=== PATIENT | female | born 1950 | race Caucasian/White ===

== ENCOUNTER 2020-12-06 10:37 | Emergency (ER) | payer MEDICARE, OTHER ==
[~2020-12-06] VITALS: Ht 167.6 cm; Wt 101.6 kg
[~2020-12-06 10:37] MED LIST: ACULAR5 ML OP; ALPHA LIPOIC A300 MG PO; ASPIR 8181 MG PO; CITALOPRAM HBR40 MG PO; CRANBERRY300 MG PO; CYCLOBENZAPRINE5 MG PO; DICLOFENAC SOD2.5 ML OPTH; DILTIAZEM ER240 MG PO; FISH OIL 1,2001 EAC4 PO; FLUOXETINE HCL20 M1 PO; GABAPENTIN100 MG PO; HYDREA500 MG PO; HYDROCHLOROTHIA50 MG PO; HYDROCODON-ACE1 EA10 PO; KLOR-CON 1010 MEQ PO; LEVOXYL100 MCG PO; LOVASTATIN40 MG PO; OMEPRAZOLE20 MG PO; PREDNISOLON5 MG/5 M1 OU; RESTASIS MULTI5.5 ML OP; SPIRONOLACTONE25 MG PO
--- OUTSIDE RECORDS SUMMARY | 2020-12-06 10:40 | XMS ---
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 Xochitl has no Care Guidelines for this patient. Fidel VISIT COUNT (12 MO.) 1 KARINA Glynn TOTAL 1 NOTE: Visits indicate total known visits. ED/C VISIT TRACKING (12 MO.) 12/06/2020 10:37 [facility] [place] TYPE: Emergency COMPLAINT: - SHORTNESS OF BREATH, VOMITING INPATIENT VISIT TRACKING (12 MO.) No inpatient visits to display in this time frame [email or web address]
[2020-12-06] MEDS ORDERED: ALENDRONATE SOD70 MG PO (10:57)
--- NOTE | 2020-12-06 18:17 | EKG ---
[facility] [address] [facility] [place], [place] [address] Signed Sinus tachycardia Inferior infarct , age undetermined Possible Anterolateral infarct , age undetermined Abnormal ECG No previous ECGs available Confirmed by LALO CHATTERJEE MD ([id number]) on 12/06/2020 6:16:59 PM Electronically Signed By: LALO CHATTERJEE MD 12/06/20 1817 PATIENT NAME: VALENTINEKAYLI Electrocardiogram DATE OF : 52 PHYSICIAN: LALO CHATTERJEE MD REPORT #: [id number] REPORT IS CONFIDENTIAL AND NOT TO BE RELEASED WITHOUT AUTHORIZATION
== END 2020-12-06 17:33 | disposition short-term general hospital (02) ==
LOC: ED 10:37
DX: I26.99 Other pulmonary embolism without acute cor pulmonale (principal); R09.02 Hypoxemia; R00.0 Tachycardia, unspecified; R77.8 Other specified abnormalities of plasma proteins; R74.02 Elevation of levels of lactic acid dehydrogenase [LDH]; K21.9 Gastro-esophageal reflux disease without esophagitis; Z88.0 Allergy status to penicillin; Z88.8 Allergy status to other drugs, medicaments and biological substances; Z79.899 Other long term (current) drug therapy; Z79.82 Long term (current) use of aspirin
CPT/HCPCS: 51701; 71045; 71260; 80048; 80053; 81001; 83605; 83690; 83735; 83880; 84484; 85025; 85610; 85730; 93005; 93010; 99285-25; C9803; J1200; J1644; J2405; J2930; J3010; J7030; Q9967; U0003

== ENCOUNTER 2021-01-07 10:40 | Day surgery (SDC) | payer MEDICARE, OTHER ==
[~2021-01-07] VITALS: Ht 167.6 cm; Wt 97.2 kg
[~2021-01-07 10:40] MED LIST changes: +ALENDRONATE SOD70 MG PO; +CALCIUM 250+D1 EACH PO; +ELIQUIS5 MG PO; +METFORMIN HCL500 M2 PO; +VITAMIN D350 MC3 PO
--- NOTE | 2021-01-07 12:24 | NUR ---
01/07/21 1224 Yoko Monroe 1219 PT TO PACU ALERT AND AWAKE DENIES PAIN.
--- NOTE | 2021-01-09 13:14 | PATH ---
[facility] [address] [facility] [place], [place] [address] Signed SPECIMEN(S): C COMP FLOW CYTOMETRY, BM EDTA SPECIMEN(S): A BONE MARROW - CORE SPECIMEN(S): B BONE MARROW - ASPIRATION CLINICAL HISTORY: Bone marrow biopsy. 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 Rule out progression to AML. See attached. D47.3 (essential [hemorrhagic] thrombocythemia) DIAGNOSIS SUMMARY: A. Peripheral blood - Mild thrombocytosis. - Macrocytosis. B. Bone marrow aspirate smears, clot section, and core biopsy: - Slightly hypercellular bone marrow with increased megakaryopoiesis. - Negative for increase in blasts. - Mild increase in bone marrow reticulin fibrosis (grade I). - Increased storage iron. - Please see diagnostic comment. DIAGNOSTIC COMMENT: The patient's history of essential thrombocythemia is noted. The bone marrow examination demonstrates slightly hypercellular bone marrow, slightly increased number of megakaryocytes with occasional loose aggregates noted. No increase in blasts is noted. The bone marrow findings are compatible with clinical history of essential thrombocythemia with no features suggestive of progression of diseases. Correlation with clinical and cytogenetic findings is recommended. In comparison to previous bone marrow study ([id number]; 07/19/2018), the cellularity is decreased and the degree of megakaryopoies is also decreased in the current study. This case has been reviewed and dictated by Ryan Weathers M.D.[facility] CENT[facility]yrese, board certified hematopathologist. NA:vlg:C2NR PERIPHERAL BLOOD: HEMOGRAM ([facility], 01/07/2021): WBCs 7.7 K/uL, RBCs 2.97 K/uL, HGB 12.2 g/dL, HCT 35.5%, MCV 120.7 f/L, RDW 14.2 fL, MCHC 34 g/dL, PLT 408 K/uL. DIFFERENTIAL (automated): 83.5% neutrophils, 9.8% lymphocytes, 6.1% monocytes, PATIENT NAME: KAYLI VALENTINE PATHOLOGY DATE OF : 52 REPORT #: [id number] PHYSICIAN: VERONICA HARDIN PCP: NERISSA NERI MD REPORT IS CONFIDENTIAL AND NOT TO BE RELEASED WITHOUT AUTHORIZATION [facility] [address] [place], [place] [address] Signed 0.9% eosinophils, and 0.4% basophils. Review of peripheral blood smear and CBC data demonstrate macrocytosis and mild anisopoikilocytosis of RBCs. The WBCs are normal in number with relative neutrophilia noted. The granulocytes show unremarkable morphology. The platelets are slightly increased in number with unremarkable in morphology. BONE MARROW: BONE MARROW ASPIRATES SMEARS: The bone marrow aspirate smears are adequately cellular for evaluation. Trilineage hematopoiesis is present with progressive ordinary maturation. There is no increase in blasts noted. The emulation appears normal. There is no dyshematopoiesis identified. The megakaryocytes appear to be increased in number with occasional hyperlobated form seen. BONE MARROW DIFFERENTIAL (200 CELLS): 1% blasts, 3% promyelocytes, 12% myelocytes, 37% segmented neutrophils, 6% lymphocytes, 1% monocytes, 4% eosinophils, 3% plasma cells, 33% erythroid cells. BONE MARROW CORE BIOPSY AND CLOT SECTION: The bone marrow core biopsy demonstrates slightly hypercellular bone marrow for age with an averaging cellularity of 40%. Trilineage hematopoiesis is present with progressive maturation. There are no lymphoid aggregates, granulomas, or metastatic tumor cells present. The megakaryocytes are scattered and appear increased in number with occasional small aggregates noted. The clot section shows similar findings. SPECIAL STAINS: - Iron (aspirate smears): Increased storage iron, negative for ringed sideroblasts. - Iron (clot section, block B1): Storage iron present, negative for ringed sideroblasts. - Reticulin stain (block A1): Mild increase in bone marrow reticulin fibrosis. IMMUNOHISTOCHEMICAL STAINS: Block (A1): - CD34: Negative for increase in blasts. - CD117: Negative for increase in blasts - CD71: Highlights erythroid precursors with normal distribution pattern. - Factor 8: Highlights and confirm increase number of megakaryocytes with occasional clustering. - MPO: Highlights myeloid precursors with normal distribution pattern - CD138: Highlights scattered plasma cells (2%) Block (B1): PATIENT NAME: KAYLI VALENTINE PATHOLOGY DATE OF : 52 REPORT #: [id number] PHYSICIAN: VERONICA PATHOLOGY PCP: NERISSA NERI MD REPORT IS CONFIDENTIAL AND NOT TO BE RELEASED WITHOUT AUTHORIZATION [address] [address] Signed - CD34 (on Block B1): Negative for increase in blasts. All control slides stained appropriately. FLOW CYTOMETRY: Bone marrow aspirate, flow cytometry: No increase in myeloblasts (1.5%). Increase [id number] in granulocytes and monocytes. See comment. COMMENT: Flow cytometry analysis shows no increase in myeloblasts. Increase CD56 expression and monocytes is noted. This finding is not specific and could be seen in reactive condition and in myeloid stem cell disorders. Patient clinical history of essential thrombocythemia is noted. Correlation with clinical, morphologic, and genetic finding is recommended for further diagnosis and for a more accurate blast count. FLOW CYTOMETRY ANALYSIS: FLOW DIFFERENTIAL (% Total CD45 vs. SSC gating): Myeloid 79%; Lymphoid 9%; Monocyte 3%; Dim CD45/Blast: 1.5%. Cell Count: 7.7 x 10*3/uL. POPULATION ANALYSIS: BLASTS: Analysis of the dim CD45 gate demonstrates 1.5% myeloblasts by CD34/CD117. LYMPHOID CELLS: The lymphocyte gate comprises 9% of total events and includes 88% T-cells with a CD4:CD8 ratio of 1.4:1 and normal miller T-cell antigen expression. 5% of lymphocytes are polyclonal B-cells with a kappa:lambda ratio of 1.5:1. The remainders are NK-cells. MYELOID CELLS: The myeloid population comprises 79% of the total events. Increased CD56 expression is observed. MONOCYTES: The monocyte population comprises 3% of the total events. Increased CD56 expression is observed. PLASMA CELLS: 0.6% plasma cells are detected in the screening gate neg-dimCD45/CD38. Plasma cells are CD45 dim and positive for CD19. ANTIBODIES USED: KAPPA, LAMBDA, CD20, CD10, CD19, CD23, CD38, FMC7, CD16, CD56, CD8, CD5, CD2, CD4, CD7, CD3, CD14, CD33, CD13, HLADR, CD34, CD117, CD15, CD45: TOTAL ANTIBODIES USED: 24. DKW GROSS DESCRIPTION: Two specimens are received in two containers, labeled "BS." PATIENT NAME: KAYLI VALENTINE PATHOLOGY DATE OF : 52 REPORT #: [id number] PHYSICIAN: VERONICA HARDIN PCP: NERISSA NERI MD REPORT IS CONFIDENTIAL AND NOT TO BE RELEASED WITHOUT AUTHORIZATION [facility] [address] [place], [place] [address] Signed A. The specimen, labeled "BS, bone marrow core," is received in formalin and consists of one cylindrical bone core fragment with clot material measuring 0.3 cm in diameter and 1.7 cm in length. The specimen is entirely submitted in cassette (A1) following decalcification in Immunocal. B. The specimen, labeled "BS, bone marrow clot," is received in formalin and consists of clot material measuring 1.8 x 1.0 x 0.2 cm in aggregate. The specimen is filtered and entirely submitted in cassette (B1). Bone marrow inventory also includes: Two peripheral smears, one EDTA tube bone marrow, two heparin tubes. AT (under the direct supervision of a pathologist) The Gross Description was prepared using a voice recognition system. The report was reviewed for accuracy; however, sound-alike word errors, addition and/or deletions may occur. If there is any question about this report, please contact Client Services. Immunohistochemical and/or in situ hybridization studies were performed on this case with the appropriate positive controls that react as expected. This test was developed and its performance characteristics determined by [employer] [facility]. It has not been cleared or approved by the U.S. Food and Drug Administration. The FDA has determined that such clearance or approval is not necessary. This test is used for clinical purposes. It should not be regarded as investigational or for research. [facility] is certified under the Clinical Laboratory Improvement Amendments of 1988 (CLIA) as qualified to perform high complexity clinical laboratory testing. In this case, certain antibodies were performed by both immunohistochemistry and flow cytometry analysis because flow cytometry analysis did not fully explain all the light microscopic findings. Immunohistochemistry aided in the analysis. Both methods are deemed medically necessary in this case. ADDITIONAL NOTES: Immunohistochemical and/or in situ hybridization studies were performed on this case with the appropriate positive controls that react as expected. This test was developed and its performance characteristics determined by [facility] [facility]. It has not been cleared or approved by the U.S. Food and Drug Administration. The FDA has determined that such clearance or approval is not PATIENT NAME: KAYLI VALENTINE PATHOLOGY DATE OF : 52 REPORT #: [id number] PHYSICIAN: VERONICA HARDIN PCP: NERISSA NERI MD REPORT IS CONFIDENTIAL AND NOT TO BE RELEASED WITHOUT AUTHORIZATION [address] [address] Signed necessary. This test is used for clinical purposes. It should not be regarded as investigational or for research. [facility] is certified under the Clinical Laboratory Improvement Amendments of 1988 (CLIA) as qualified to perform high complexity clinical laboratory testing. PERFORMING LABORATORY: The technical component was performed by [facility], [address] [place], [place] [address], [place] [address] (Food Service: Darian Penn D.O.; CLIA#: [id number]. Professional interpretation was performed by [facility], [facility], [address] [place] [address] (CLIA#: [id number]). The technical component was performed by [facility], [address] [place], [place] [address] [address] (Food Service: Darian Penn D.O.; CLIA#: [id number]). Professional interpretation was performed by [facility], [facility], [address] [place] [address] (CLIA#: [id number]) IMAGES: A: [id number] A: [id number] FINAL DIAGNOSIS PERFORMED BY: Ryan Weathers MD, CHALO, Jan 08 2021 10:38AM Diagnostician: Ryan Weathers MD, FACP Pathologist Electronically Signed 01/09/2021 Copies: ~ PATIENT NAME: KAYLI VALENTINE PATHOLOGY DATE OF : 52 REPORT #: [id number] PHYSICIAN: VERONICA HARDIN PCP: NERISSA NERI MD REPORT IS CONFIDENTIAL AND NOT TO BE RELEASED WITHOUT AUTHORIZATION
== END 2021-01-07 13:00 | disposition home or self-care (01) ==
LOC: OPS 10:40 → DS 10:44 → OPS 12:00 → DS 12:00 → OPS 13:00
PROVIDERS: ATTEND Specialist
PROC: 07DR3ZX Extraction of Iliac Bone Marrow, Percutaneous Approach, Diagnostic (ICD-10-PCS; principal; 2021-01-07 12:00)
DX: D47.3 Essential (hemorrhagic) thrombocythemia (principal); D75.89 Other specified diseases of blood and blood-forming organs; I10 Essential (primary) hypertension; E78.00 Pure hypercholesterolemia, unspecified; M19.90 Unspecified osteoarthritis, unspecified site; A80.9 Acute poliomyelitis, unspecified; E03.9 Hypothyroidism, unspecified; E55.9 Vitamin D deficiency, unspecified; G62.9 Polyneuropathy, unspecified; Z88.0 Allergy status to penicillin; Z91.041 Radiographic dye allergy status
CPT/HCPCS: 36415; 85025; G0500; J2250; J3010; J7121

== ENCOUNTER 2021-10-05 23:59 | Emergency (ER) | payer OTHER, MEDICARE ==
[~2021-10-05] VITALS: Ht 167.6 cm; Wt 103.3 kg
--- OUTSIDE RECORDS SUMMARY | 2021-10-06 | XMS ---
PreManage Notification: KAYLI VALENTINE Security Educational Diagnostician Events No recent Security Events currently on file CRITERIA MET - [facility]MP CARE PROVIDERS [facility] 12/08/2020-Current PHONE: [phone] Xochitl has no Care Guidelines for this patient. EDiana VISIT COUNT (12 MO.) 2 KARINA Glynn TOTAL 2 NOTE: Visits indicate total known visits. ED/UCC VISIT TRACKING (12 MO.) 10/05/2021 23:[address] [facility] [place] TYPE: Emergency COMPLAINT: - FALL 12/06/2020 10:[address] 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 Shortness of breath 1. Other pulmonary embolism with acute cor pulmonale 1. Other pulmonary embolism without acute cor pulmonale 2. Respiratory failure, unspecified with hypoxia 3. Acute embolism and thrombosis of right popliteal vein 4. Other forms of acute ischemic heart disease 5. Pulmonary hypertension, unspecified 6. Essential (hemorrhagic) thrombocythemia 7. Elevation of levels of liver transaminase levels 8. Other specified diseases of blood and blood-forming organs 9. Type 2 diabetes mellitus without complications 10. Obesity, unspecified 11. Body mass index [BMI] 37.0-37.9, adult 12. Hypomagnesemia 13. Hypothyroidism, unspecified 14. Obstructive sleep apnea (adult) (pediatric) 15. Essential (primary) hypertension 16. Hyperlipidemia, unspecified 17. Tachycardia, unspecified 18. Heart disease, unspecified 19. Other specified inflammatory liver diseases 20. Allergy status to penicillin 21. Radiographic dye allergy status 22. Personal history of poliomyelitis [email or web address]
[2021-10-06] MEDS ORDERED: JAKAFI15 MG PO (00:12)
[2021-10-06] MEDS ORDERED: ELIQUIS5 MG PO (00:13)
[2021-10-06] MEDS ORDERED: ASPIRIN81 MG PO (00:15)
[2021-10-06] MEDS ORDERED: PERCOCET 10-321 EACH PO (02:02)
[2021-10-06] MEDS ORDERED: HYDROCODON-ACE1 EAC8 PO (02:44)
== END 2021-10-06 03:00 | disposition home or self-care (01) ==
LOC: ED 23:59
DX: S22.41XA Multiple fractures of ribs, right side, initial encounter for closed fracture (principal); K21.9 Gastro-esophageal reflux disease without esophagitis; M81.0 Age-related osteoporosis without current pathological fracture; Z90.49 Acquired absence of other specified parts of digestive tract; Z88.0 Allergy status to penicillin; Z88.8 Allergy status to other drugs, medicaments and biological substances; Z79.82 Long term (current) use of aspirin; Z79.890 Hormone replacement therapy; Z79.84 Long term (current) use of oral hypoglycemic drugs; Z79.1 Long term (current) use of non-steroidal anti-inflammatories (NSAID); Z79.899 Other long term (current) drug therapy; W01.198A Fall on same level from slipping, tripping and stumbling with subsequent striking against other object, initial encounter
CPT/HCPCS: 70450; 71250; 74176; 80048; 85025; 96374; 96375; 96376; 99284-25; J1170; J2405

== ENCOUNTER 2022-06-07 13:44 | Emergency (ER) | payer OTHER, MEDICARE ==
[~2022-06-07] VITALS: Ht 167.6 cm; Wt 103.3 kg
[~2022-06-07 13:44] MED LIST changes: +ASPIRIN81 MG PO; +HYDROCODON-ACE1 EAC8 PO; +JAKAFI15 MG PO; +PERCOCET 10-321 EACH PO
--- OUTSIDE RECORDS SUMMARY | 2022-06-07 13:46 | XMS ---
PreManage Notification: KAYLI VALENTINE Security Research Laboratory Technician Events No recent Security Events currently on file CRITERIA MET - PDMP CARE PROVIDERS [facility] 12/08/2020-Current PHONE: [phone] Xochitl has no Care Guidelines for this patient. EDiana VISIT COUNT (12 MO.) 2 KARINA Glynn TOTAL 2 NOTE: Visits indicate total known visits. ED/UCC VISIT TRACKING (12 MO.) 06/07/2022 13:44 [facility] [place] TYPE: Emergency COMPLAINT: - GLF 10/05/2021 23:59 [facility] [place] TYPE: Emergency COMPLAINT: - FALL DIAGNOSES: - [facility] (current) use of non-steroidal anti-inflammatories (NSAID) - [facility] (current) use of oral hypoglycemic drugs - Allergy status to other drugs, medicaments and biological substances - Acquired absence of other specified parts of digestive tract - Multiple fractures of ribs, right side, initial encounter for closed fracture - Age-related osteoporosis without current pathological fracture - Fall on same level from slipping, tripping and stumbling with subsequent striking against other object, initial encounter - Hormone replacement therapy - Other penitentiary (current) drug therapy - Gastro-esophageal reflux disease without esophagitis - Other chest pain - Allergy status to penicillin - 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
[2022-06-07] MEDS ORDERED: PEGASYS180 MCG/0. SUB-Q (14:59)
== END 2022-06-07 16:41 | disposition short-term general hospital (02) ==
LOC: ED 13:44
DX: S72.452A Displaced supracondylar fracture without intracondylar extension of lower end of left femur, initial encounter for closed fracture (principal); S82.032A Displaced transverse fracture of left patella, initial encounter for closed fracture; S82.042A Displaced comminuted fracture of left patella, initial encounter for closed fracture; S82.851A Displaced trimalleolar fracture of right lower leg, initial encounter for closed fracture; Z88.0 Allergy status to penicillin; Z91.041 Radiographic dye allergy status; Z79.899 Other long term (current) drug therapy; Z79.82 Long term (current) use of aspirin; Z79.01 Long term (current) use of anticoagulants; Z79.84 Long term (current) use of oral hypoglycemic drugs; Z20.822 Contact with and (suspected) exposure to COVID-19; W10.1XXA Fall (on)(from) sidewalk curb, initial encounter
CPT/HCPCS: 36415; 73552; 73560; 73590; 73610; 80048; 85025; 85610; 87502; 96374; 96375; 99284-25; C9803; J1170; J2405; U0003

== ENCOUNTER 2024-06-11 08:45 | Day surgery (SDC) | payer MEDICARE ==
[2024-06-07 10:25] VITALS: BP 137/75
[~2024-06-11] VITALS: Ht 167.6 cm; Wt 104.5 kg
[~2024-06-11 08:45] MED LIST changes: +CALCIUM 600 MG1 EA10 PO; +CEFAZOLIN SODIUM 2 GM/20 ML SYR IV SCH; +COLESTIPOL HCL1 GM PO; +ESTRACE42.5 GM PV; +EVENITY105 MG/1.1 SUB-Q; +IBLOOD GLUCOSE TEST STRIP 1 EA TEST VI PRN; +KETOROLAC TROMET5 M1 OPTH; +LACTATED RINGER'S 1,000 ML IV SCH; +LEVOTHYROXINE100 MCG PO; +LIDOCAINE HCL 1% 5 ML SDV INJ ONE; +NEURONTIN100 MG PO; +PEGASYS180 MCG/0. SUB-Q; +VITAMIN B-12250 MCG PO; +VITAMIN C500 M4 PO; +ZOLOFT100 MG PO
[2024-06-11 09:00] VITALS: BP 176/78
[2024-06-11] MEDS ORDERED: OXYBUTYNIN CHLO10 MG PO (09:06)
[2024-06-11 09:18] VITALS: BP 157/73
[2024-06-11] MEDS ORDERED: propofoL 200 MG/20 ML VIAL ONE (11:23)
[2024-06-11] MEDS ORDERED: ondansetron HCL 4 MG/2 ML VIAL ONE (11:23)
[2024-06-11] MEDS ORDERED: LIDOCAINE HCL 2% 5 ML SDV ONE (11:23)
[2024-06-11] MEDS ORDERED: fentaNYL citrate 100 MCG/2 ML VIAL ONE (11:52)
[2024-06-11] MEDS ORDERED: iopamidoL 30 ML VIAL ONE (11:57)
[2024-06-11] MEDS ORDERED: KETOROLAC TROMETHAMINE 15 MG/ML VIAL IV PRN (12:00)
[2024-06-11] MEDS ORDERED: ondansetron HCL 4 MG/2 ML VIAL IV PRN (12:00)
[2024-06-11] MEDS ORDERED: HYDROmorphone HCL 1 MG/ML SYR IV PRN (12:00)
[2024-06-11] MEDS ORDERED: OXYCODONE/APAP 5/325 TAB PO PRN (12:00)
[2024-06-11] MEDS ORDERED: PHENAZOPYRIDINE HCL 95 MG TAB PO PRN (12:00)
[2024-06-11] MEDS ORDERED: LACTATED RINGER'S 1,000 ML IV ONE (12:25)
--- NOTE | 2024-06-11 13:20 | NUR ---
06/11/24 1320 Demar Moreno 1309: PT ARRIVED TO PACU VIA STRETCHER. PT HAD ORAL AIRWAY IN ON 6L VIA MASK. PT NON RESPONSIVE TO STIMULI AT THIS TIME. 1311: ORAL AIRWAY REMOVED AT THIS TIME. 1312: PT TITRATED TO RA. 1319: PT REMAINS ON RA WITH SATS IN THE MID 90'S. PT DORWSY BUT ABLE TO AND QUESTIONS.
--- NOTE | 2024-06-11 13:50 | NUR ---
PATIENT RETURNS TO ROOM 3 FROM PACU. REPORT TAKEN FROM HOME LEON. PATIENT REPORTING SOME SLIGHT NAUSEA BUT NO VOMITING. PAIN IS AN 8/10. VITAL SIGNS OBTAINED AND WDL. PATIENT NEEDING TO URINATE SOON SHE GETS BACK TO HER ROOM. VOIDS 200ML OF BLOOD TINGED URINE. PATIETN REPORTS BURNING WITH URINATION. PATIENT ALSO REPORTING THAT SHE IS FEELING SHAKY AND LIGHT HEADED. IV FLUIDS OPENED BACK UP, WATER PROVIDED, AND LYNETTE CRACKERS PROVIDED TO HELP. ADVISED TO GO SLOW WITH EATING AND DRINKING. PATIENT REQUESTS TO URINATE A SECOND TIME AND VOIDS BLOOD TINGED URINE AND AGAIN REPORTING BURING WITH URINATION.
[2024-06-11 13:55] VITALS: BP 169/72
--- NOTE | 2024-06-11 14:15 | NUR ---
patient up to use the restroom again. patient requests to walk to bathroom instaed of using bedside commode. patient is up and steady on her feet with the use of her walker. she states that her nausea and shakiness is subsiding.
--- NOTE | 2024-06-11 14:30 | NUR ---
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 gave instructions to for oxycodone, cipro, and pyridium.
--- NOTE | 2024-06-11 14:35 | NUR ---
patient asking to get dressed at this time. allowed patient to get dressed.
--- NOTE | 2024-06-11 14:42 | NUR ---
patient requesting to use the restroom again. patient stable on her feet with her walker and ambulated to restroom down the wright.
--- NOTE | 2024-06-11 14:50 | NUR ---
AT THIS TIME PATIENT MEEDS ALL MILESTONES. PATIENT HAS VOIDED MULTIPLE TIMES, DENIES NAUSEA/VOMITING, DRINKING AND EATING, AND ABLE TO AMBULATE WITH HER WALKER WHICH IS BASELINE FOR HER. PATIENT EXPRESSES DESIRE TO GO HOME. PAIN MEDICATION GIVEN TO PATIENT BEFORE LEAVING TODAY. THIS RN REVIEWED DISCHARGE INSTRUCTIONS WITH SPOUSE IN THE ROOM AND THEY BOTH EXPRESSED UNDERSTANDING. PATIENT IS DISCHARGED FROM THE UNIT VIA WHEELCHAIR. THIS RN HELPED PATIENT INTO VEHICLE WITHOUT COMPLICATION.
[2024-06-11 14:52] VITALS: BP 171/76
== END 2024-06-11 15:05 | disposition home or self-care (01) ==
LOC: DS 08:45 → OPS 08:45 → DS 10:55 → OPS 10:55 → DS 14:00 → OPS 15:05
PROVIDERS: ATTEND Urology
PROC: BT1DZZZ Fluoroscopy of Right Kidney, Ureter and Bladder (ICD-10-PCS; principal; 2024-06-11 10:55)
PROC: 0T768DZ Dilation of Right Ureter with Intraluminal Device, Via Natural or Artificial Opening Endoscopic (ICD-10-PCS; 2024-06-11 10:55)
DX: N13.5 Crossing vessel and stricture of ureter without hydronephrosis (principal); I10 Essential (primary) hypertension; E78.5 Hyperlipidemia, unspecified; G14 Postpolio syndrome; F41.0 Panic disorder [episodic paroxysmal anxiety]; E03.9 Hypothyroidism, unspecified; Z79.899 Other long term (current) drug therapy; Z88.0 Allergy status to penicillin; Z88.5 Allergy status to narcotic agent; Z91.041 Radiographic dye allergy status
CPT/HCPCS: 00910; 74420; C1769; C2617; J0690; J2001; J2405; J2704; J3010; J7121; Q9967

== ENCOUNTER 2025-07-11 05:52 | Day surgery (SDC) | payer MEDICARE, OTHER ==
[~2025-07-11] VITALS: Ht 167.6 cm; Wt 91.0 kg
[~2025-07-11 05:52] MED LIST changes: -CEFAZOLIN SODIUM 2 GM/20 ML SYR IV SCH; -IBLOOD GLUCOSE TEST STRIP 1 EA TEST VI PRN; +LATANOPROST2.5 ML OPTH; -LIDOCAINE HCL 1% 5 ML SDV INJ ONE; +OXYBUTYNIN CHLO10 MG PO; +RECLAST 55 MG/100 M IV
[2025-07-11 06:09] VITALS: BP 164/76
[2025-07-11] MEDS ORDERED: IBLOOD GLUCOSE TEST STRIP 1 EA TEST VI PRN (07:00)
[2025-07-11] MEDS ORDERED: LIDOCAINE HCL 1% 5 ML SDV INJ ONE (07:00)
[2025-07-11] MEDS ORDERED: LIDOCAINE HCL 2% 5 ML SDV ONE (07:17)
--- NOTE | 2025-07-11 07:42 | NUR ---
PT NOT AVAILABLE FOR VISIT. PROVIDED PRAYER.
--- NOTE | 2025-07-11 08:18 | NUR ---
07/11/25 0818 Elis Mart 0812 PT ARRIVED TO PACU AND WAKES EASILY. VSS. PT ENCOURAGED TO PASS GAS AND DENIES CONCERNS. PT RESTING WITH EYES CLOSED.
[2025-07-11 08:51] VITALS: BP 141/70
--- NOTE | 2025-07-11 10:16 | OR ---
[facility] [address] [place], [place] [address] Signed DATE OF OPERATION: 07/11/2025 SURGEON: Beverly Irvin MD PREOPERATIVE DIAGNOSES: 1. Anemia. 2. Last colonoscopy 2013. POSTOPERATIVE DIAGNOSES: 1. Extensive diverticulosis. No evidence of polyps, colitis, or cancer. 2. Internal hemorrhoids. PROCEDURE: Total colonoscopy to cecum. ANESTHESIA: Intravenous sedation, propofol infusion, Cj Mary TOWER CLIMBER. INDICATION: This 75-year-old white woman is a patient of HUNTER Stevens in [place] as well as Dr. Maryan London. She has had progressive thrombocytosis with a platelet count greater than one million based on evaluation this year in January. A bone marrow biopsy performed in 2017 had been undertaken and she has been treated with hydroxyurea and aspirin since 2017. She presented to the emergency room at [facility] on December 06, 2020, having pulmonary emboli and suggestive of right heart failure. She has had progressive thrombocytosis despite advancing doses of hydroxyurea. She did cross over to ruxolitinib. She does have some anemia and on that basis was referred for colonoscopy. Her last colonoscopy was in 2013. FINDINGS: The prep was excellent. Complete colonoscopy was undertaken of the cecum with full intubation of the cecum. She had numerous diverticula throughout the colon. She also had internal hemorrhoids. There was no evidence of polyps, cancer, or colitis. DESCRIPTION OF PROCEDURE: The patient was brought to the endoscopy suite and placed in lateral decubitus position, given intravenous sedation to the point of slurred speech and nystagmus. Digital rectal examination showed some external hemorrhoidal tag type findings. An Olympus video colonoscope was passed in the rectum and manipulated throughout the colon noting numerous diverticula throughout. Ultimately, the cecum was intubated. Ileocecal valve Electronically Signed By: BEVERLY IRVIN MD 07/11/25 [facility] [place][note 2] PATIENT NAME: KAYLI VALENTINE OPERATIVE REPORT DATE OF : 52 REPORT #: [id number] PHYSICIAN: BEVERLY IRVIN MD PCP: HONEY MCCAIN REPORT IS CONFIDENTIAL AND NOT TO BE RELEASED WITHOUT AUTHORIZATION [facility] [address] [place], [place] [address] Signed and appendiceal orifice were normal. The scope was withdrawn from that point. Examination throughout showed only scattered diverticula throughout the colon, most extensive in the left and sigmoid area. Retroflexed view of the rectum showed internal hemorrhoids. The scope was removed. The patient was taken to recovery room in good condition. CONCLUDING DIAGNOSIS: Diverticulosis (extensive) and internal hemorrhoids. PLAN: To replete and return to the ongoing care of her primary provider Honey Mccain as well as Dr. London. Consideration for repeat colonoscopy in 10 years if clinically appropriate would be made. MD GA Payton/APRIL /[id number] cc: HUNTER Stevensa Warren London MD Copies: MARYAN LONDON MD ~ Electronically Signed By: BEVERLY IRVIN MD 07/11/25 1016 PATIENT NAME: KAYLI VALENTINE OPERATIVE REPORT DATE OF : 52 REPORT #: [id number] PHYSICIAN: BEVERLY IRVIN MD PCP: HONEY MCCAIN REPORT IS CONFIDENTIAL AND NOT TO BE RELEASED WITHOUT AUTHORIZATION
== END 2025-07-11 09:10 | disposition home or self-care (01) ==
LOC: OPS 05:52 → DS 05:52 → OPS 07:30 → DS 11:00 → OPS 11:00 → DS 12:00
PROVIDERS: ATTEND Surgery
PROC: 0DJD8ZZ Inspection of Lower Intestinal Tract, Via Natural or Artificial Opening Endoscopic (ICD-10-PCS; principal; 2025-07-11 07:30)
DX: Z12.11 Encounter for screening for malignant neoplasm of colon (principal); K57.30 Diverticulosis of large intestine without perforation or abscess without bleeding; K64.8 Other hemorrhoids; K64.4 Residual hemorrhoidal skin tags; C91.10 Chronic lymphocytic leukemia of B-cell type not having achieved remission; I10 Essential (primary) hypertension; G47.30 Sleep apnea, unspecified; Z86.0102 Personal history of hyperplastic colon polyps; Z79.899 Other long term (current) drug therapy; Z88.0 Allergy status to penicillin; Z88.8 Allergy status to other drugs, medicaments and biological substances
CPT/HCPCS: 00811; J2003; J2704; J7121